=== PATIENT | male | born 1985 | race Two or more races ===

== ENCOUNTER 2019-02-11 11:56 | Emergency (ER) | payer MEDICAID ==
[~2019-02-11] VITALS: Ht 182.9 cm; Wt 91.6 kg
[2019-02-11 12:07] VITALS: BP 146/97
[2019-02-11] MEDS ORDERED: KETOROLAC TROMETHAMINE INJ 60 MG/2 ML VIAL IM ONE ×2 (13:00→13:02)
== END 2019-02-11 13:27 | disposition home or self-care (01) ==
LOC: ER 12:03
DX: M62.830 Muscle spasm of back (principal); M54.2 Cervicalgia; Z72.0 Tobacco use
CPT/HCPCS: 96372; 99283; 99406; J1885

== ENCOUNTER 2020-07-13 23:22 | Emergency (ER) | payer MEDICAID ==
[~2020-07-13] VITALS: Ht 152.4 cm; Wt 90.7 kg
[2020-07-13 23:39] VITALS: BP 159/99
[2020-07-14] MEDS ORDERED: LORAZEPAM INJ 2 MG/ML VIAL IM ONE
[2020-07-14] MEDS ORDERED: KETOROLAC TROMETHAMINE INJ 60 MG/2 ML VIAL IM ONE ×2 (00:04)
[2020-07-14] MEDS ORDERED: LORAZEPAM INJ 2 MG/ML VIAL ONE (00:05)
== END 2020-07-14 00:30 | disposition home or self-care (01) ==
LOC: ER 23:22
DX: M54.5 Low back pain (principal)
CPT/HCPCS: 96372 ×2; 99284; J1885; J2060

== ENCOUNTER 2022-05-19 01:46 | Emergency (ER) | payer MEDICAID ==
[~2022-05-19] VITALS: Ht 180.3 cm; Wt 86.2 kg
[~2022-05-19 01:46] MED LIST: PRED50TA PO
--- NOTE | 2022-05-19 02:08 | NUR ---
[id number]. 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 AMBULATORY WITH NON LABORED BREATHING IN BED 02 ON MONITOR AND POX, AWAITING MD WHITING.
--- NOTE | 2022-05-19 02:40 | NUR ---
20G IV ESTABLISHED AT [facility]. BLOOD DRAWN AND SENT TO LAB
[2022-05-19 03:08] LABS: BASOPHILS # (AUTO) 0.1 K/uL (0.0-0.2); BASOPHILS % (AUTO) 0.9 % (0.0-2.0); EOSINOPHILS % (AUTO) 0.9 % (0.0-6.0); HEMATOCRIT 45 % (39-51); HEMOGLOBIN 15.9 g/dL (13.5-17.5); LYMPHOCYTES # (AUTO) 1.9 K/uL (0.8-4.8); LYMPHOCYTES % (AUTO) 18.7 % (20.0-44.0); MEAN CORPUSCULAR HGB CONC 36 g/dl (31.0-36.0); MEAN CORPUSCULAR VOLUME 86 fL (80-96); MONOCYTES # (AUTO) 0.6 K/uL (0.1-1.30); MONOCYTES % (AUTO) 5.6 % (2.0-12.0); NEUTROPHILS # (AUTO) 7.5 K/uL (1.8-8.9); NEUTROPHILS % (AUTO) 73.9 % (43.0-81.0); PLATELET COUNT (AUTO) 153 K/uL (150-450); WHITE BLOOD COUNT (AUTO) 10.2 K/uL (4.3-11.0)
[2022-05-19 03:31] LABS: ALANINE AMINOTRANSFERASE 41 U/L (12-78); ALBUMIN 4.1 g/dL (3.4-5.0); ALKALINE PHOSPHATASE 50 U/L (46-116); ASPARTATE AMINOTRANSFERASE 14 U/L (15-37); BILIRUBIN,DIRECT 0.2 mg/dL (0.0-0.2); BILIRUBIN,TOTAL 1.2 mg/dL (0.2-1.0); CALCIUM, SERUM 9.2 mg/dL (8.5-10.1); CARBON DIOXIDE 29 mmol/L (21-32); CHLORIDE 106 mmol/L (98-107); GLUCOSE 111 mg/dL (74-106); POTASSIUM 3.7 mmol/L (3.5-5.1); SODIUM SERUM 140 mmol/L (136-145); TOTAL PROTEIN, SERUM 6.8 g/dL (6.4-8.2); UREA NITROGEN, BLOOD 15 mg/dL (7-18)
[2022-05-19 06:18] VITALS: BP 136/80
--- NOTE | 2022-05-19 06:18 | NUR ---
Patient discharged to home in stable condition. Written and verbal after care instructions given. Patient verbalizes understanding of instruction.
--- NOTE | 2022-05-19 06:23 | NUR ---
Patient discharged to home in stable condition. Written and verbal after care instructions given. Patient verbalizes understanding of instruction.IV removed. Catheter intact and site benign. Pressure and 4x4 applied to site. No bleeding noted.
== END 2022-05-19 06:24 | disposition home or self-care (01) ==
LOC: ER 01:55
DX: R07.89 Other chest pain (principal); I10 Essential (primary) hypertension; Z79.52 Long term (current) use of systemic steroids
CPT/HCPCS: 36415; 71045-TC; 80048-TC; 80076-TC; 84484-TC; 85025-TC; 85730-TC